=== PATIENT | female | born 1940 | race Caucasian/White ===

== ENCOUNTER 2017-03-28 16:17 | Emergency (ER) | payer OTHER ==
[2017-03-28 16:33] VITALS: BMI 20.5
--- NOTE | 2017-03-28 17:26 | PDOC ---
History of Present Illness - General History Source: Patient Exam Limitations: No Limitations - History of Present Illness Initial Comments: 03/28/17 18:22 The patient is a 76 year old female, with a significant past medical history of Anemia, COPD, GERD, HLD, Arthritis, Osteoporosis who presents to the emergency department with diffuse abdominal pain since this morning. Patient describes intermittent abdominal pain, 10/10 in severity associated with nausea since this morning. Patient woke up in her usual state of health, ate breakfast until she experienced sudden onset of abdominal pain. Patient reports she has never experienced this pain before. Patient reports normal bowel movement however denies any melena, diarrhea or constipation. She denies fever, chills, dysuria, frequency, urgency or hematuria. She denies chest pain, headache or dizziness. Allergies: NKA Past surgical history: Hip replacement Social history: Former smoker PCP: Brittany Tucker <Jeanna Poon - Last Filed: 03/28/17 22:19> <Booker Gao - Last Filed: 03/29/17 00:16> - General Chief Complaint: Pain, Acute Stated Complaint: PAIN Time Seen by Provider: 03/28/17 17:17 Past History <Jeanna Poon - Last Filed: 03/28/17 22:19> - Past Medical History Anemia: Yes Asthma: No Cancer: No Cardiac Disorders: No CVA: No COPD: Yes CHF: No Dementia: No Diabetes: No GI Disorders: Yes (GERD) Disorders: No HTN: No Hypercholesterolemia: Yes Liver Disease: No Seizures: No Thyroid Disease: No - Surgical History Abdominal Surgery: No Appendectomy: No Cardiac Surgery: No Cholecystectomy: No Lung Surgery: No Neurologic Surgery: No Orthopedic Surgery: Yes (RTH) - Psycho/Social/Smoking Cessation Hx Suicidal Ideation: No Smoking Status: No Smoking History: Former smoker Have you smoked in the past 12 months: No Number of Cigarettes Smoked Daily: 0 If you are a former smoker, when did you quit?: 1999 Information on smoking cessation initiated: No Hx Alcohol Use: No Drug/Substance Use Hx: No Substance Use Type: None Hx Substance Use Treatment: No <Booker Gao - Last Filed: 03/29/17 00:16> - Past Medical History Allergies/Adverse Reactions: Allergies Allergy/AdvReac Type Severity Reaction Status Date / Time No Known Allergies Allergy Verified 03/28/17 16:29 Home Medications: Ambulatory Orders Cholecalciferol (Vitamin D3) [Vitamin D3] 2,000 unit PO DAILY 04/09/16 Cyanocobalamin Vit B-12 Inj. [Vitamin B12 Injection -] 1,000 mcg IJ MONTHLY Mag Carb/Al Hydrox/Alginic AC [Gaviscon Liquid] 355 ml PO PRN PRN 05/12/16 Levofloxacin [Levaquin -] 500 mg PO DAILY #10 tablet 03/29/17 Metronidazole [Flagyl -] 500 mg PO QID #40 tablet 03/29/17 Review of Systems - Review of Systems Able to Perform ROS?: Yes Comments:: 03/28/17 18:22 CONSTITUTIONAL: No fever, no chills, no fatigue EYES: No visual changes ENT: No ear pain, no sore throat CARDIOVASCULAR: No chest pain, no palpitations RESPIRATORY: No cough, no SOB GI: + abdominal pain, nausea. No vomiting, no constipation, no diarrhea GENITOURINARY: No dysuria, no frequency, no hematuria MUSKULOSKELETAL: No back pain, no joint pain, no myalgias SKIN: No rash NEURO: No headache <Jeanna Poon - Last Filed: 03/28/17 22:19> *Physical Exam - Vital Signs Last Vital Signs Temp Pulse Resp BP Pulse Ox 97.7 F 65 19 126/70 96 03/28/17 16:29 03/28/17 16:29 03/28/17 16:29 03/28/17 16:29 03/28/17 16:29 - Physical Exam Comments: 03/28/17 18:22 CONSTITUTIONAL: Well-appearing; well-nourished; in no apparent distress HEAD: Normocephalic; atraumatic EYES: PERRL; EOM intact ENMT: External appears normal; normal oropharynx NECK: Supple; nontender; no cervical lymphadenopathy CARD: Normal S1, S2; no murmurs, rubs, or gallops RESP: Normal chest excursion with respiration; breath sounds clear and equal bilaterally; no wheezes, rhonchi, or rales ABD: +diffuse abdominal tenderness. No guarding No CVA tenderness. No palpable organomegaly, no palpable hernias EXT: Normal ROM in all four extremities; non-tender to palpation; distal pulses intact SKIN: Warm, dry, no rash NEURO: No focal neurological deficiencies. <Jeanna Poon - Last Filed: 03/28/17 22:19> - Vital Signs Last Vital Signs Temp Pulse Resp BP Pulse Ox 97.7 F 65 19 126/70 96 03/28/17 16:29 03/28/17 16:29 03/28/17 16:29 03/28/17 16:29 03/28/17 16:29 <Booker Gao - Last Filed: 03/29/17 00:16> ED Treatment Course - LABORATORY CBC & Chemistry Diagram: 03/28/17 18:52 03/28/17 18:52 <Jeanna Poon - Last Filed: 03/28/17 22:19> - LABORATORY CBC & Chemistry Diagram: 03/28/17 18:52 03/28/17 18:52 <Booker Gao - Last Filed: 03/29/17 00:16> Medical Decision Making - Medical Decision Making 03/28/17 22:11 Dr. Diaz paged via phone answering service. Awaiting call back. 03/28/17 22:19 Dr. Paz returned the call. Patient's case was discussed. <Jeanna Poon - Last Filed: 03/28/17 22:19> - Medical Decision Making 03/28/17 22:46 Patient is a well-appearing 76-year-old female who presents with atraumatic crampy lower abdominal pain. Initial evaluation, patient was noted to have mild to moderate right lower quadrant, suprapubic and left lower quadrant tenderness to palpation without guarding rebound. CBC revealed normal leukocyte count with predominance of neutrophils. CMP was within normal limit. Urinalysis reveals increased specific gravity but no evidence of pyuria. Patient has received IV fluids, Zofran and morphine-4 mg in 2 mg aliquots. Patient also underwent a CT that and pelvis with by mouth contrast. On reevaluation, patient is awake and alert, asymptomatic, with minimal left lower quadrant tenderness only. CT of abdomen and pelvis reveals moderate amount of retained stool and a 3.5 cm left lower quadrant, small bowel diverticula and filled with fluid and fecal debris. I discussed the case with Dr. Bradley flores of GI. Patient's symptoms may be related to acute diverticulitis which is not appreciated on CT. Given patient 's advanced age and symptomatology, will treat with Levaquin and Flagyl. Patient given the option of admission for IV antibiotics versus discharge home with clear diet and by mouth antibiotics. Patient prefers to go home and will follow-up as an outpatient. We'll administer IV antibiotics in the ER and will discharge with outpatient follow-up. <Booker Gao - Last Filed: 03/29/17 00:16> *DC/Admit/Observation/Transfer - Attestations Scribe Attestion: 03/28/17 18:23 Documentation prepared by Jeanna Poon, acting as medical services assistant for Booker Gao MD. <Jeanna Poon - Last Filed: 03/28/17 22:19> - Attestations Physician Attestion: 03/28/17 22:46 The documentation was prepared by the scribe under my direct supervision. I have reviewed the documentation which correctly represents the findings, medical decision-making and critical action taken by me. <Booker Gao - Last Filed: 03/29/17 00:16> Diagnosis at time of Disposition: Abdominal pain Qualifiers: Abdominal location: lower abdomen, unspecified Qualified Code(s): R10.30 - Lower abdominal pain, unspecified Diverticulitis of intestine Qualifiers: Diverticulitis site: small and large intestine Diverticulitis bleeding: without bleeding Diverticulitis complication: without perforation or abscess Qualified Code(s): K57.52 - Diverticulitis of both small and large intestine without perforation or abscess without bleeding - Discharge Dispostion Disposition: HOME Condition at time of disposition: Stable - Referrals Referrals: Brittany Zepeda MD [Primary Care Provider] - Jacek Gross MD [Staff Physician] - - Patient Instructions Printed Discharge Instructions: DI for Abdominal Pain-Adult, DI for Diverticulitis
[2017-03-28] MEDS ORDERED: ONDANSETRON 4 MG/2 ML VIAL IVPB ONE (17:40)
[2017-03-28] MEDS ORDERED: morphine CARPU-JECT 4 MG/1 ML DISP.SYRIN IVPUSH ONE (17:40)
[2017-03-28] MEDS ORDERED: SODIUM CHLORIDE 1,000 ML IV STA (17:40)
[2017-03-28] MEDS ORDERED: morphine CARPU-JECT 4 MG/1 ML DISP.SYRIN ONE (17:50)
[2017-03-28] MEDS ORDERED: ONDANSETRON 4 MG/2 ML VIAL ONE (17:51)
[2017-03-28 18:32] LABS: URINE APPEARANCE CLEAR; URINE BILIRUBIN NEGATIVE (NEGATIVE); URINE BLOOD 2+ (NEGATIVE); URINE COLOR YELLOW; URINE GLUCOSE (UA) NEGATIVE (NEGATIVE); URINE KETONE 1+ (NEGATIVE); URINE NITRITE NEGATIVE (NEGATIVE); URINE PROTEIN NEGATIVE (NEGATIVE); URINE UROBILINOGEN NEGATIVE mg/dL (0.2-1.0)
[2017-03-28 18:34] LABS: URINE LEUK ESTERASE 1+ (NEGATIVE)
[2017-03-28 18:39] LABS: URINE HYALINE CAST 2 /lpf; URINE MUCUS MANY; URINE RBC 5 /hpf (0-3); URINE WBC 5 /hpf (3-5)
[2017-03-28 19:06] LABS: BASOPHIL 0.3 % (0-2.0); MCH 27.4 pg (25.7-33.7); MCHC 32.8 g/dl (32.0-36.0); MEAN CELL VOLUME 83.6 fl (80-96); MEAN PLT VOLUME 7.5 fl (7.5-11.1); PLATELET COUNT 392 K/MM3 (134-434); RDW 14.8 % (11.6-15.6)
[2017-03-28 19:27] LABS: INR 1.23 (0.82-1.09); PROTHROMBIN TIME (PATIENT) 13.6 SEC (9.98-11.88)
[2017-03-28 19:35] LABS: ALBUMIN 3.4 g/dl (3.4-5.0); ALK PHOS 78 U/L (45-117); ANION GAP 7 (8-16); BILIRUBIN,TOTAL 0.3 mg/dL (0.2-1.0); CALCIUM 9.3 mg/dL (8.5-10.1); CO2 28 mmol/L (21-32); CREATININE 0.8 mg/dL (0.55-1.02); GLUCOSE,RANDOM 103 mg/dL (74-106); SGOT/AST 11 U/L (15-37); SGPT/ALT 11 U/L (12-78); TOT PROT 7.7 g/dl (6.4-8.2)
[2017-03-28] MEDS ORDERED: SODIUM CHLORIDE 500 ML IV STA (21:44)
[2017-03-28] MEDS ORDERED: LEVOFLOXACIN 500 MG IVPB 100 ML IVPB ONE ×2 (22:28→22:47)
[2017-03-28] MEDS ORDERED: METRONIDAZOLE 500 MG PREMIXED 100 ML IVPB ONE ×2 (22:28→22:46)
[2017-03-29 00:09] VITALS: BP 143/76; PULSE 92; TEMP 98.4
== END 2017-03-29 00:34 | disposition home or self-care (01) ==
LOC: JER 16:17
PROC: 3E03329 Introduction of Other Anti-infective into Peripheral Vein, Percutaneous Approach (ICD-10-PCS; principal; 2017-03-28)
PROC: 3E033NZ Introduction of Analgesics, Hypnotics, Sedatives into Peripheral Vein, Percutaneous Approach (ICD-10-PCS; 2017-03-28)
PROC: 3E033GC Introduction of Other Therapeutic Substance into Peripheral Vein, Percutaneous Approach (ICD-10-PCS; 2017-03-28)
PROC: 3E0337Z Introduction of Electrolytic and Water Balance Substance into Peripheral Vein, Percutaneous Approach (ICD-10-PCS; 2017-03-28)
DX: K57.52 Diverticulitis of both small and large intestine without perforation or abscess without bleeding (principal); R10.30 Lower abdominal pain, unspecified; D64.9 Anemia, unspecified; J44.9 Chronic obstructive pulmonary disease, unspecified; K21.9 Gastro-esophageal reflux disease without esophagitis; E78.5 Hyperlipidemia, unspecified; M19.90 Unspecified osteoarthritis, unspecified site; M81.0 Age-related osteoporosis without current pathological fracture; Z87.891 Personal history of nicotine dependence
CPT/HCPCS: 36415; 71010-TC; 74176-TC; 80053; 81003; 81015; 83690; 85025; 85610; 86850; 86900; 86901; 87086; 96365; 96367; 96375; 99284-25

== ENCOUNTER 2018-01-14 09:56 | Day surgery (SDC) | payer OTHER ==
[~2018-01-14 09:56] MED LIST: ACETAMINOPHEN 325 MG TABLET (FP) PO ONE; ZOLEDRONIC ACID/MAN/WATER 5 MG/100 ML INFUS..BTL IVPB ONE
[2018-01-14] MEDS ORDERED: ACETAMINOPHEN 325 MG TABLET (FP) ONE (10:27)
[2018-01-14 10:43] LABS: ALBUMIN 3.5 g/dl (3.4-5.0); ANION GAP 6 (8-16); BLOOD UREA NITROGEN 13 mg/dL (7-18); CALCIUM 9.1 mg/dL (8.5-10.1); CHLORIDE 104 mmol/L (98-107); CO2 30 mmol/L (21-32); GLUCOSE,RANDOM 93 mg/dL (74-106); POTASSIUM 4.9 mmol/L (3.5-5.1); SGOT/AST 13 U/L (15-37); SGPT/ALT 11 U/L (12-78); SODIUM 140 mmol/L (136-145)
[2018-01-14 10:46] LABS: ALK PHOS 98 U/L (45-117); BILIRUBIN,TOTAL 0.2 mg/dL (0.2-1.0); CREATININE 0.7 mg/dL (0.55-1.02); TOT PROT 7.9 g/dl (6.4-8.2)
[2018-01-14] MEDS ORDERED: ZOLEDRONIC ACID/MAN/WATER 5 MG/100 ML INFUS..BTL IVPB ONE (11:15)
[2018-01-14 11:48] VITALS: TEMP 98
[2018-01-14 12:26] VITALS: BP 116/74; PULSE 77
== END 2018-01-14 11:55 | disposition home or self-care (01) ==
LOC: JASU-ENDO 09:56
PROVIDERS: ATTEND Internal Medicine
PROC: 3E033GC Introduction of Other Therapeutic Substance into Peripheral Vein, Percutaneous Approach (ICD-10-PCS; principal; 2018-01-14)
DX: M81.0 Age-related osteoporosis without current pathological fracture (principal)
CPT/HCPCS: 36415; 80053; 96365; J3489

== ENCOUNTER 2024-02-07 10:50 | Emergency (ER) | payer OTHER ==
[2024-02-07 11:02] VITALS: BP 164/80; PULSE 96; RESP 18; TEMP 97.7; BMI 20.9
[2024-02-07] MEDS ORDERED: LIDOCAINE 4% PATCH TP ONE (11:25)
[2024-02-07] MEDS ORDERED: DEXAMETHASONE SOD PHOSPHATE 10 MG/1 ML VIAL ONE (11:25)
[2024-02-07] MEDS: DEXAMETHASONE SOD PHOSPHATE 10 MG/1 ML VIAL PO ONE (11:31)
[2024-02-07] MEDS: LIDOCAINE 4% PATCH TP ONE (11:31)
[2024-02-07] MEDS ORDERED: ACETAMINOPHEN 325 MG TABLET (FP) ONE (12:19)
[2024-02-07] MEDS: ACETAMINOPHEN 325 MG TABLET (FP) PO ONE (12:23)
[2024-02-07] MEDS ORDERED: LIDOCAINE PATCH REMOVAL MC SCH (22:00)
== END 2024-02-07 12:36 | disposition home or self-care (01) ==
LOC: JERFT 10:50 → JER 10:50 → JERFT 12:36
DX: M25.551 Pain in right hip (principal); G89.29 Other chronic pain
CPT/HCPCS: 73502-TC-RT-FY; 99283-25; J1100